=== PATIENT | male | born 1960 | race Asian ===

== ENCOUNTER 2018-04-01 07:13 | Day surgery (SDC) | payer OTHER ==
[~2018-04-01] VITALS: Ht 162.6 cm; Wt 65.8 kg
[2018-04-01 07:44] VITALS: BP 107/75
[2018-04-01 10:43] VITALS: BP 106/71
== END 2018-04-01 11:00 | disposition home or self-care (01) ==
LOC: GI 07:13 → OR 08:45 → GI 08:45
PROVIDERS: Internal Medicine Gastroenterology
PROC: 0DB58ZX Excision of Esophagus, Via Natural or Artificial Opening Endoscopic, Diagnostic (ICD-10-PCS; 2018-04-01)
PROC: 0DB98ZX Excision of Duodenum, Via Natural or Artificial Opening Endoscopic, Diagnostic (ICD-10-PCS; principal; 2018-04-01 08:30)
PROC: 0DB68ZX Excision of Stomach, Via Natural or Artificial Opening Endoscopic, Diagnostic (ICD-10-PCS; 2018-04-01 08:30)
DX: K21.0 Gastro-esophageal reflux disease with esophagitis (principal); K31.7 Polyp of stomach and duodenum; Z68.24 Body mass index [BMI] 24.0-24.9, adult
CPT/HCPCS: 43235; J1200; J1610; J2250; J2310; J3010; J3490